=== PATIENT | male | born 1990 | race Caucasian/White ===

== ENCOUNTER 2024-07-31 15:44 | Emergency (ER) | payer MEDICAID, SELFPAY ==
[2024-07-31 15:45] VITALS: BMI 20.2
--- NOTE | 2024-07-31 15:49 | EKG_ITS ---
[facility] Test Date: 2024-07-31 Pat Name: EMIL ARZATE Department: Room: - Gender: Male Medical Science Liaison: FRED: 1990 Requested By: ED Temporary Provider Order Number: [id number] Reading MD: ED Temporary Provider Measurements Intervals [place] Rate: 80 P: 85 FL: 119 QRS: 88 QRSD: 113 T: 89 QT: 356 QTc: 412 Interpretive Statements SINUS RHYTHM WITH SHORT FL INTERVAL WITH OCCASIONAL ECTOPIC PREMATURE COMPLEXES INCOMPLETE RIGHT BUNDLE BRANCH BLOCK [90+ ms QRS DURATION, TERMINAL R IN V1/V2, 40+ ms S IN I/aVL/V4/V5/V6] No previous ECG available for comparison /store/S0/[id number].pdf
[2024-07-31 16:11] VITALS: BP 130/84; PULSE 88; RESP 20; TEMP 36.8; O2SAT 98
--- NOTE | 2024-07-31 16:23 | PD.EDRME ---
Rapid Medical Screening Exam [facility] Arrival date/time: 07/31/24 15:44 34-year-old male with no known medical history presents to the emergency room with a chief complaint of withdrawing from fentanyl and Xanax. Patient states he has not had any of this medication for the last 6 days and has had palpitations, chest pain, vomiting. I have greeted and performed a focused initial assessment of this patient. A comprehensive ED assessment and evaluation of the patient, analysis of all test results, and completion of the medical decision making process will be conducted by additional ED providers. Chief Complaint: General Adult/Misc Complain Vital signs: Vital Signs Temperature 98.2 F 07/31/24 16:11 Pulse Rate 88 07/31/24 16:11 Respiratory Rate 20 07/31/24 16:11 Blood Pressure 130/84 07/31/24 16:11 Pulse Oximetry (%) 98 07/31/24 16:11 Oxygen Delivery Method Room Air 07/31/24 16:11 Vital signs reviewed by provider: Yes
[2024-07-31 18:07] LABS: Collection Type, Urine Clean Catch
[2024-07-31 18:19] LABS: Bacteria,Urine Rare; Bilirubin,Urine Negative (Negative); Blood,Urine Negative (Negative); Clarity,Urine Clear (Clear/Hazy); Color,Urine Yellow (Lt Yel-Yel); Glucose, Urine Negative (Negative); Ketones,Urine Negative (Negative); Leukocyte Esterase,Urine Positive (Negative); Nitrite,Urine Negative (Negative); Protein,Urine Trace (Neg - Trace); RBC,Urine 28 /hpf (0-3); Specific Gravity,Urine 1.033 (1.001-1.035); Squamous Epithelial Cell,Urine 1 /hpf (0-5); WBC,Urine 30 /hpf (0-5)
[2024-07-31 18:27] LABS: Basophils % (Auto) 1 % (0-2.5); Eosinophils # (Auto) 0.1 Thou/mm3 (0.0-0.5); Eosinophils % (Auto) 1 % (0-10); Hematocrit 40.3 % (41.0-53.0); Hemoglobin 13.7 g/dL (13.5-16.0); Immature Granulocytes % (Auto) 0 % (0-0); Immature Granulocytes Auto 0.02 Thou/mm3 (0.00-0.00); Lymphocytes # (Auto) 1.7 Thou/mm3 (1.0-4.8); Lymphocytes % (Auto) 20 % (10-50); Mean Corpuscular Hemoglobin 28.8 pg (25.0-35.0); Mean Corpuscular Volume 85 fL (80-100); Monocytes # (Auto) 0.7 Thou/mm3 (0.0-0.8); Monocytes % (Auto) 8 % (0-12); Neutrophils % (Auto) 70 % (37-80); Nucleated Red Blood Cell % 0 /100 WBC (0); Platelet Count 302 Thou/mm3 (140-440); RDW Standard Deviation 40.2 fL (35.1-43.9); Red Blood Count 4.76 Miln/mm3 (4.50-5.90); White Blood Count 8.6 Thou/mm3 (3.8-10.6)
[2024-07-31 18:28] LABS: Alanine Aminotransferase 9 U/L (10-49); Albumin, Serum 4.3 gm/dL (3.5-5.0); Albumin/Globulin Ratio 2.2 (1.2-2.2); Alkaline Phosphatase 71 U/L (46-116); Anion Gap 11 (7-16); Aspartate Amino Transferase 14 U/L (0-34); BUN/Creatinine Ratio 13 Ratio (12-20); Bilirubin,Total 0.5 mg/dL (0.3-1.2); Blood Urea Nitrogen 12 mg/dL (9-23); Calcium 8.6 mg/dL (8.3-10.6); Calcium (Corrected) 8.6 mg/dL (8.5-10.1); Carbon Dioxide 26.2 mMol/L (20.0-31.0); Chloride 106 mMol/L (98-107); Creatinine (Component) 0.9 mg/dL (0.6-1.3); Estimated Creatinine Clearance 107.6 mL/min (>60); Glucose 100 mg/dL (74-106); Osmolality,Calculated 284 (275-295); Potassium 3.8 mMol/L (3.4-5.1); Sodium 143 mMol/L (136-145); Total Protein 6.3 gm/dL (5.7-8.2); Troponin I < 0.002 ng/mL (0.0-0.045); eGFR > 60 See Note
[2024-07-31 18:31] LABS: Amphetamine/Methamp Scrn,U Negative (Negative); Barbiturate Screen,Urine Negative (Negative); Benzodiazepines Screen,Urine Positive (Negative); Benzoylecgonine Screen, Ur Negative (Negative); Fentanyl Screen,Urine Positive (Negative); Opiate Screen,Urine Negative (Negative); THC Screen,Urine Negative (Negative)
[2024-07-31 18:54] LABS: B-Type Natriuretic Peptide < 20 pg/mL (0-100)
--- NOTE | 2024-07-31 19:07 | PD.EDPSYCH ---
ED Psych RME/HPI General Chief Complaint: General Adult/Misc Complain Stated Complaint: WITHDRAWL FROM FENTANYL AND XANAX x 6 DAYS Time Seen by Provider: 07/31/24 18:16 Arrival date/time: 07/31/24 15:44 RME / HPI RME / HPI Narrative: 07/31/24 15:44 34-year-old male with no known medical history presents to the emergency room with a chief complaint of withdrawing from fentanyl and Xanax. Patient states he has not had any of this medication for the last 6 days and has had palpitations, chest pain, vomiting. I have greeted and performed a focused initial assessment of this patient. A comprehensive ED assessment and evaluation of the patient, analysis of all test results, and completion of the medical decision making process will be conducted by additional ED providers. -------- This section includes all my notes and documentations, including HPI, PE, and ED course. Navin Avalos MD HPI: 34yo male accompanied by his mom with hallucinations. Used Xanax and fentanyl daily for months and possibly 8 years. She reports quitting about 10 days ago. Mom reports about a week ago. Mom reports not sleeping for several days. Hoping for inpatient psychiatric unit for help. Patient reports no thoughts of hurting himself or others. She reports auditory and visual hallucinations. For example, mom reports Christiano using his hand as a phone and talking to people who aren't present. And in the car driving here, Christiano was paranoid about people on top of the car. No psychiatric diagnoses in the past. No psychiatric medications prescribed in the past. No other complaints. ROS: All negative except as documented in HPI. Physical Exam: General: Alert and oriented. Eyes: Conjunctivae and lids clear. PERRL EOMI. ENT: No nasal congestion. Neck: Supple. Heart: RRR. Lungs: No respiratory distress. Good air movement. No rhonchi, wheezing, rales. Abdomen: Soft and nontender. Skin: Warm and dry. Neuro: Alert and oriented X 3. Cranial nerves II to XII grossly normal. No peripheral motor deficits. I reviewed all diagnostic test results. My interpretation of the EKG is: Sinus rhythm (66 bpm) with nonspecific ST-T changes. Blood tests are unremarkable. UDS positive for benzodiazepines and fentanyl. At this point, diagnoses include hallucinations. Patient is medically cleared for further care, including evaluation by our ED sub acute care nurse. At 6 AM on 08/01/2024, the care of the patient was transferred to Dr. Seaman. Navin Avalos MD Related Data Allergies Allergy/AdvReac Type Severity Reaction Status Date / Time No Known Allergies Allergy Verified 07/31/24 15:48 Review of Systems Review of Systems Systems Reviewed: All systems reviewed, normal except as documented Past Medical History Social History SMOKING STATUS: Current every day smoker ED Exam Narrative Physical exam: As noted in HPI. Course Quality Measures none Orders Category Date Time Status EKG (ED ONLY) *Do not use* NOW Care 07/31/24 15:49 Completed Referral Psych Eval Stat Cons 07/31/24 21:19 Active EKG (ED Only) Stat Exams 07/31/24 15:49 Draft Acetaminophen Stat Lab 07/31/24 17:50 Completed Alcohol, Blood Medical Stat Lab 07/31/24 17:50 Completed B-Type Natriuretic Peptide Stat Lab 07/31/24 18:18 Completed CBC Stat Lab 07/31/24 17:50 Completed Comprehensive Metabolic Panel Stat Lab 07/31/24 17:50 Completed Drug Screen,Urine Stat Lab 07/31/24 17:58 Completed Free T4 (Free Thyroxine) Stat Lab 07/31/24 17:50 Completed Magnesium Stat Lab 07/31/24 17:50 Completed Salicylate Stat Lab 07/31/24 17:50 Completed Thyroid Stimulating Hormone Stat Lab 07/31/24 17:50 Completed Troponin I Stat Lab 07/31/24 17:50 Completed Urinalysis Stat Lab 07/31/24 17:58 Completed Urine Culture Stat Lab 07/31/24 17:58 Received Vital Signs Vital signs: Vital Signs Temperature 98.2 F 07/31/24 16:11 Pulse Rate 88 07/31/24 16:11 Respiratory Rate 20 07/31/24 16:11 Blood Pressure 130/84 07/31/24 16:11 Pulse Oximetry (%) 98 07/31/24 16:11 Oxygen Delivery Method Room Air 07/31/24 16:11 Psych MDM Narrative MDM Narrative:: Scribe Attestation: 07/31/24 Laura Perez am scribing for and in the presence of Dr. Avalos. 34yo male accompanied by his mom presents to the ED for a chief complaint of withdrawals. Patient's mom states the patient stopped using Xanax 2mg BID and Fentanyl last Sunday, reporting since then, patient has felt anxious and depressed. Mom states the patient has not been sleeping for the last 4 days. Patient endorses having auditory and visual hallucinations. Mom states she was concerned due to the patient seeming like he's talking on the phone (when he lost it a few days ago) and was anxious on the drive here because he thought people were on top of the car. Patient denies any SI or HI. He denies having any current psychiatric diagnosis. No other complaints reported. Patient data External records reviewed:: [facility] previous records (Per chart review, patient has no previous ED visits or admissions to this facility.) Clinical information provided by:: patient and parent Social determinants that could affect healthcare access:: substance use (history of fentanyl and Xanax use) Patient has the following chronic illnesses:: none How is presenting disease/condition affected by chronic disease/condition?: no chronic disease Evaluation data The following diagnostics were reviewed and interpreted by me:: lab results Lab and/or radiology exams considered but not ordered:: none Interpretation Summary: I reviewed all diagnostic test results. My interpretation of the EKG is: Sinus rhythm (66 bpm) with nonspecific ST-T changes. Blood tests are unremarkable. UDS positive for benzodiazepines and fentanyl. Medications / Prescriptions Medications or Prescriptions considered but not ordered:: none Medication administrations:: none Consultations Consultation(s) initiated? (list below): No Diagnosis Psych Differential Diagnosis: acute psychosis, chronic schizophrenia, suicidal ideation, bipolar disorder, depression, drug-induced psychotic disorder and acute anxiety Most likely diagnosis given after review of the tests above:: Hallucinations Admission Indicated Admission indicated?: not indicated Explain why admission is indicated or not indicated:: No psychiatric services here. Admission Request Was there a request for admission?: No Disposition Plan Disposition Plan: other (specify) (Signed out to Dr. Seaman at 0600.) Discharge Plan Prescriptions/Referrals Referrals: No Primary/Family,Physician [Primary Care Provider] - In 1 week Problem List Clinical Impression: Hallucinations Patient/Caregiver Discharge Instructions Print Language: Czech
[2024-07-31 20:22] LABS: Acetaminophen < 2.0 mcg/mL (10.0-20.0); Alcohol, Blood Medical < 3.0 mg/dL (0-10.0); Free T4 (Free Thyroxine) 1.29 ng/dL (0.89-1.76); Salicylate < 3.0 mg/dL; Thyroid Stimulating Hormone 1.34 uIU/mL (0.55-4.78)
[2024-07-31 21:40] VITALS: BP 131/74; PULSE 65; RESP 18; TEMP 37.1; O2SAT 100
[2024-07-31 22:03] VITALS: BP 127/82; PULSE 78; RESP 14; TEMP 37; O2SAT 99
--- NOTE | 2024-07-31 22:19 | PC.NURSE ---
FAMILY CONTACT: MOTHER- SYDNEY ARZATE [phone]
[2024-08-01] VITALS (7 sets, daily range): BP systolic 104–131; BP diastolic 61–102; PULSE 60–85; RESP 14–18; TEMP 36.3–37.1; O2SAT 98–99
--- NOTE | 2024-08-01 08:49 | PC.CC ---
Patient is a 34 year-old male who presents to the hospital for hallucinations due to withdrawals from Xanax and Fentanyl. ASWRajani met with patient face to face introduced self, role, and reason for visit to patient. Patient appears to be alert and oriented to self, location, and situation. ASW explained limits of confidentiality to the patient. Patient made appropriate eye contact and presents as calm and euthymic throughout assessment. Patient presented with good insight and linear thought process. Patient disclosed the last time he used was actually yesterday when mom took him to a treatment facility and was able to get some substances while there. Patient reports that when he uses substances he begins to have hallucinations such as auditory and paranoia. At the time of encounter patient denied auditory and visual hallucinations, suicidal and homicidal ideations. Patient denied having past suicide attempts and has never been placed on a 5150-hold. Patient is not connected to outpatient mental health services. Per patient, he has not mental health diagnosis. Patient scored low-risk on the [place] Screening. Patient?s toxicology was positive for Fentanyl and Benzodiazepines. Patient provided consent for this administrative underwriter to get collateral from his mother, Dea Bautista . Per mother, patient has been actively hallucinating and was under the impression the patient had no used in approximately 11 days; however, patient was able to get substance when she took the patient to an outpatient treatment facility. Mother is concerned that patient is paranoid and having hallucinations. Mother reports she would like for her son to get inpatient treatment for AOD. Upon clinical consultation with [facility], Chelsey Valentino patient does not meet criteria for 5150-hold. This administrative underwriter will be sending a referral for in-patient treatment center ?[facility]?. Patient is open to receiving AOD treatment and provided consent for referral to be sent. ASW made telephone contact with Edwin Khanna, [employer] and sent referral. He reports patient will need to have a telephone interview with them today and will be able to provide us with outcome if the facility is able to accept patient. ASW provided patient and mother, Dea who is now at bedside of referral being sent and to expect a phone interview today. ASW provided update to Dr. Seaman, statue maker Lanise, and bedside JADEN Sauceda. ASW to remain available.
--- NOTE | 2024-08-01 09:51 | PD.EDADDENDU ---
Emergency Room Addendum Addendum Narrative: 0600: Care assumed from Dr. Avalos, the previous shift emergency physician. Past medical, surgical, social and family history reviewed. Vitals and home medications reviewed. I will assume the care of the patient at this time, pending mental health evaluation. Patient has been medically cleared by previous physician. Please refer to the emergency department record for history and examination from initial visit.?The following addendum documentation note is intended to reflect any pending information, findings, or radiology results not included in the patient?s initial chart. 0830: ASW has met with the patient. States the patient does not meet criteria to be held on a hold. States she is working on placing patient in a drug rehab facility. 1041: Notified by ASW that the patient was denied acceptance to rehab facility, states she will provide patient with resources. Patient will be DC home.
--- NOTE | 2024-08-01 11:14 | PC.CC ---
ASW, Rajani was informed patient was denied by [facility] and they are not able to accept. ASW provided update to patient and mother, Dea who is at bedside. They were receptive to information. ASW provided patient and mother with a Community Resource Guide with specific information to other facilities that patient could call and attempt to get treatment for AOD. Patient and mother were appreciative. Patient if he feels he needs to return to the hospital to return. ASW provided update to Dr. Seaman, clay stain mixer Lanise, and bedside JADEN Sauceda.
== END 2024-08-01 11:30 | disposition home or self-care (01) ==
PROVIDERS: Nurse Practitioner Family; Emergency Provider Emergency Medicine
DX: R44.0 Auditory hallucinations (principal); R44.1 Visual hallucinations; R00.2 Palpitations; R07.9 Chest pain, unspecified; R11.10 Vomiting, unspecified
CPT/HCPCS: 36415; 80053; 80307; 80320; 80329; 81001; 83735; 83880; 84439; 84443; 84484; 85025; 87086; 93005; 96127; 99284; G0480